=== PATIENT | male | born 1960 | race Caucasian/White ===

== ENCOUNTER 2018-04-27 22:30 | Emergency (ER) | payer OTHER ==
[~2018-04-27] VITALS: Ht 177.8 cm; Wt 86.2 kg
[2018-04-27 22:50] VITALS: Ht 177.8 cm; Wt 86.2 kg
[2018-04-27 23:10] LABS: PLATELET COUNT 143 x10^3mcL (130-400); RED CELL DISTRIBUTION WIDTH 13.5 % (11.5-14.5)
[2018-04-27 23:13] LABS: BASOPHIL % 2.2 % (0-2)
[2018-04-27 23:44] LABS: CARBON DIOXIDE 28.5 mmol/L (21-32); CHLORIDE SERUM 94 mmol/L (98-107); CREATININE SERUM 0.6 mg/dL (0.7-1.3); GFR1 > 60 mL/min; GLUCOSE SERUM 131 mg/dL (74-106); POTASSIUM SERUM 3.2 mmol/L (3.5-5.1); SODIUM SERUM 132 mmol/L (136-145)
[2018-04-27 23:49] LABS: ALKALINE PHOSPHATASE 152 U/L (46-116); ALT/SGPT 85 U/L (16-63); AST/SGOT 150 U/L (15-37); BILIRUBIN TOTAL 0.74 mg/dL (0.20-1.00)
[2018-04-27 23:54] LABS: ALBUMIN 3.3 g/dL (3.4-5.0)
[2018-04-28 09:24] VITALS: BP 103/70
== END 2018-04-28 09:24 | disposition home or self-care (01) ==
LOC: ED 22:30
PROVIDERS: Emergency Medicine
DX: F10.129 Alcohol abuse with intoxication, unspecified (principal)
CPT/HCPCS: G0480; J3411; J3475; J3490; J7030

== ENCOUNTER 2020-01-01 21:04 | Emergency (ER) | payer SELFPAY ==
[~2020-01-01] VITALS: Ht 175.3 cm; Wt 90.7 kg
[2020-01-01 21:18] VITALS: Ht 175.3 cm; Wt 90.7 kg
[2020-01-02 06:22] VITALS: BP 100/66
== END 2020-01-02 06:22 | disposition home or self-care (01) ==
LOC: ED 21:04
DX: F10.129 Alcohol abuse with intoxication, unspecified (principal); F17.210 Nicotine dependence, cigarettes, uncomplicated; Z71.6 Tobacco abuse counseling
CPT/HCPCS: 99406

== ENCOUNTER 2020-08-23 15:53 | Emergency (ER) | payer SELFPAY ==
[~2020-08-23] VITALS: Ht 175.3 cm; Wt 80.7 kg
[2020-08-23 16:26] VITALS: Ht 175.3 cm; Wt 80.7 kg
[2020-08-23 16:35] VITALS: BP 102/65
[2020-08-23 17:14] LABS: RED CELL DISTRIBUTION WIDTH 13.2 % (12.1-16.2)
[2020-08-23 17:18] LABS: BASOPHIL % 3.3 % (0.2-1.5); PLATELET COUNT 110 x10^3mcL (152-348)
[2020-08-23 17:41] LABS: ALKALINE PHOSPHATASE 136 U/L (46-116); ALT/SGPT 47 U/L (16-63); AST/SGOT 131 U/L (15-37); BILIRUBIN TOTAL 2.58 mg/dL (0.20-1.00); CALCIUM 8.2 mg/dL (8.5-10.1); CARBON DIOXIDE 30.9 mmol/L (21-32); CHLORIDE SERUM 91 mmol/L (98-107); GFR1 > 60 mL/min; GLUCOSE SERUM 103 mg/dL (74-106); SODIUM SERUM 134 mmol/L (136-145); TOTAL PROTEIN, SERUM 6.7 g/dL (6.4-8.2)
[2020-08-23 17:48] LABS: ALBUMIN 3.1 g/dL (3.4-5.0)
[2020-08-23 17:51] LABS: POTASSIUM SERUM 2.9 mmol/L (3.5-5.1)
== END 2020-08-23 18:22 | disposition left against medical advice (07) ==
LOC: ED 15:53
PROVIDERS: Emergency Medicine
DX: F10.129 Alcohol abuse with intoxication, unspecified (principal); E87.6 Hypokalemia; Y90.8 Blood alcohol level of 240 mg/100 ml or more
CPT/HCPCS: 82962; G0480; J7030